=== PATIENT | male | born 1995 | race Caucasian/White ===

== ENCOUNTER 2019-06-19 13:13 | Emergency (ER) | payer BC ==
[~2019-06-19] VITALS: Ht 188 cm; Wt 90.9 kg
[2019-06-19 13:52] VITALS: TEMP 97.9
[2019-06-19 14:10] LABS: COLLECTION METHOD CLEAN CATCH
[2019-06-19 14:21] LABS: PH 7 (5-8); SQUAMOUS EPITHELIAL None Seen /hpf; URINE APPEARANCE Clear; URINE BACTERIA None Seen /hpf; URINE BILIRUBIN Negative (NEGATIVE); URINE BLOOD 1+ (NEGATIVE); URINE COLOR Straw; URINE GLUCOSE Negative (NEGATIVE); URINE KETONE Negative (NEGATIVE); URINE LEUKOCYTE ESTERASE Negative (NEGATIVE); URINE NITRATE Negative (NEGATIVE); URINE PROTEIN(semi-quant) Negative (NEGATIVE); URINE RBC 0-2 /hpf; URINE UROBILINOGEN Negative (NEGATIVE)
[2019-06-19 17:02] LABS: BASO % 0.3 % (0.0-2.0); EOS % 0.2 % (0-4.0); GRAN # 6.8 (1.4-6.5); GRAN % 71.7 % (42.2-75.2); HEMATOCRIT 44.9 % (42.0-52.0); HEMOGLOBIN 15.5 g/dl (13.5-18.0); LYMPH # 1.3 (1.2-3.4); LYMPH % 13.9 % (20.0-51.0); MEAN CELL VOLUME 89 fl (80.0-100.0); MEAN CORPUSCULAR HEMOGLOBIN 31 pg (27.0-31.0); MEAN CORPUSCULAR HGB CONC 35 g/dl (33.0-37.0); MEAN PLATELET VOLUME 10.5 fl (7.4-10.4); MONO # 1.3 (0.1-0.6); MONO % 13.5 % (1.7-9.3); PLATELET COUNT 95 K/mm3 (130-400); RED BLOOD COUNT 5.07 M/mm3 (4.20-5.60); REDCELL DISTRIBUTION WIDTH-CV 12.6 % (11.5-14.5)
[2019-06-19 17:11] LABS: ALANINE AMINOTRANSFERASE 38 U/L (21-72); ALBUMIN 3.5 gm/dL (3.5-5.0); ALKALINE PHOSPHATASE 51 U/L (50-136); ANION GAP 7 mmol/L (7-16); AST,SGOT 29 U/L (15-37); BILIRUBIN,TOTAL 0.8 mg/dL (0.0-1.0); BLOOD UREA NITROGEN 10 mg/dL (9-20); C-REACTIVE PROTEIN < 0.5 mg/dL (0.0-0.9); CALCIUM 7.2 mg/dL (8.4-10.2); CARBON DIOXIDE 21 mmol/L (22-30); CHLORIDE 113 mmol/L (98-107); GLUCOSE 79 mg/dL (74-106); LIPASE 18 U/L (23-300); POTASSIUM 3.6 mmol/L (3.4-5.0); SODIUM 142 mmol/L (137-145); TOTAL PROTEIN 6.3 gm/dL (6.4-8.2)
[2019-06-19 18:33] VITALS: BP 152/103; PULSE 63
== END 2019-06-19 18:33 | disposition home or self-care (01) ==
LOC: COL.ER 13:13
PROVIDERS: Emergency Medicine
DX: R10.31 Right lower quadrant pain (principal); F17.210 Nicotine dependence, cigarettes, uncomplicated
CPT/HCPCS: J1885; J2405; J7030; Q9967